=== PATIENT | female | born 1985 | race Caucasian/White ===

== ENCOUNTER → 2024-06-20 08:30 | Outpatient (REF) | payer BC, SELFPAY | LOC: WDC 08:30 | PROVIDERS: ATTENDING PHYSICIAN Emergency Medicine | DX: Z12.31 Encounter for screening mammogram for malignant neoplasm of breast (principal) | CPT/HCPCS: 77063; 77067 ==

== ENCOUNTER → 2024-07-28 13:58 | Outpatient (REF) | payer BC, SELFPAY | LOC: RAD 13:58 | PROVIDERS: ATTENDING PHYSICIAN Physician Assistant; FAMILY PHYSICIAN Emergency Medicine | DX: M25.641 Stiffness of right hand, not elsewhere classified (principal); M25.642 Stiffness of left hand, not elsewhere classified; M54.50 Low back pain, unspecified | CPT/HCPCS: 72100; 72200; 73130 ==

== ENCOUNTER → 2024-12-01 12:42 | Outpatient (REF) | payer BC, SELFPAY | LOC: WDC 12:42 | PROVIDERS: ATTENDING PHYSICIAN Emergency Medicine | DX: R92.343 Mammographic extreme density, bilateral breasts (principal) | CPT/HCPCS: 76641 ==

== ENCOUNTER → 2025-01-12 16:25 | Outpatient (REF) | payer BC, SELFPAY | LOC: MRI 3T 16:25 | PROVIDERS: ATTENDING PHYSICIAN Nurse Practitioner Adult Health; FAMILY PHYSICIAN Emergency Medicine | DX: R92.2 Inconclusive mammogram (principal); Z80.3 Family history of malignant neoplasm of breast | CPT/HCPCS: 77049; A9585 ==

== ENCOUNTER → 2025-01-21 14:52 | Outpatient (REF) | payer BC, SELFPAY | LOC: WDC 14:52 | PROVIDERS: ATTENDING PHYSICIAN Nurse Practitioner Adult Health; FAMILY PHYSICIAN Emergency Medicine | DX: R92.8 Other abnormal and inconclusive findings on diagnostic imaging of breast (principal) | CPT/HCPCS: 76642 ==

== ENCOUNTER → 2025-01-28 11:58 | Outpatient (REF) | payer BC, SELFPAY ==
--- NOTE | 2025-01-28 14:47 | OID.BR.INTR ---
[facility]igator - Initial
- -
Date of Contact: 01/28/25
Met with patient. Patient given written information on navigator services available at [facility]. Will follow up as needed per protocol.
== END ==
LOC: WDC 11:58
PROVIDERS: ATTENDING PHYSICIAN Nurse Practitioner Adult Health
DX: N63.11 Unspecified lump in the right breast, upper outer quadrant (principal)
CPT/HCPCS: 88305; 19083; A4648

== ENCOUNTER 2025-01-28 14:20 | Emergency (ER) | payer BC, SELFPAY ==
[2025-01-28 14:25] VITALS: BP 123/77; BMI 21.3
--- NOTE | 2025-01-28 14:33 | ED.GENMED ---
History of Present Illness
General
Chief Complaint: Fainting Sensation
Time Seen by Provider: 01/28/25 14:31
History of Present Illness
History of Present Illness:
TIME OF INITIAL EVALUATION
- 2:45 PM
REVIEW OF OLD RECORDS
- I reviewed the the notes from Dr. Agrawal from earlier today:
'The skin was cleansed ChloraPrep. It was anesthetized with 8 mL of 1% lidocaine at 1:30 PM. A small incision was made. Two passes were made with a coaxial core biopsy system. Two samples were obtained. These were sent to pathology for review. A
biopsy clip was placed in the area of concern. The lesion collapsed to less than 50% its initial size.
After walking a short distance from the ultrasound room to the mammography room, prior to the postprocedural mammogram, the patient became lightheaded and dizzy. She was placed in the supine position. . Her blood pressure at the time was 117/70 at
2:00 PM..She denied shortness of breath, difficulty swallowing or difficulty breathing. She was given a sip of water At 2:07 PM, her blood pressure was 133/88. She stated her arms felt heavy and she still felt dizzy. Rapid response was called. The
patient was sent to the emergency room.'
Note:
CHIEF COMPLAINT(S)
Dizziness and lightheadedness following a biopsy procedure.
HISTORY OF PRESENT ILLNESS
The patient is a 39-year-old female who experienced feelings of dizziness and lightheadedness following a biopsy procedure performed by Dr. Agrawal. She reports no loss of consciousness but did experience tingling sensations. The patient mentions
that there might be an anxiety component to her symptoms. She is currently experiencing dizziness.
The patient underwent a biopsy where a marker clip was placed to identify the biopsy site. This procedure was followed by a planned mammogram to verify the marker placement, but symptoms of dizziness arose before the mammogram could be conducted.
The patient reports no chest pain currently and denies any recent instances of dehydration, diarrhea, or lack of fluid intake. Theres no recent exposure to heat without adequate hydration.
There is a mention of the patients prior imaging, including an ultrasound and MRI, which identified an abnormality prompting the biopsy. The procedure results are currently unknown, but there is an indication that the healthcare team does not
suspect cancer.
On her electrocardiogram, the patient presented with an incomplete right bundle branch block, a finding described as common and not of significant clinical concern. Her vital signs, including oxygen saturation, heart rate, and blood pressure, are
reported to be normal.
PHYSICAL EXAM
- The patients vital signs include 100% oxygen saturation, excellent heart rate, and normal blood pressure.
- General: Well appearing in no distress
- HEENT: Moist oral mucosa
- Cardiovascular: No murmurs, normal heart rate, regular rhythm, No chest wall tenderness
- Pulmonary: No respiratory distress, breath sounds are clear and equal
- Abdomen: Soft with no peritoneal signs, no tenderness
- Neurologic: Excellent strength all extremities, no coordination deficits
- Psychiatric: Appropriate mental status, normal insight and judgement
- Extremities: Nontender, no edema, moves all extremities equally
- Skin: No rash, no lesions
PLAN
- Basic blood work to be performed for further evaluation.
- Administration of intravenous fluids to address potential dehydration.
- Continuous electrocardiogram monitoring to ensure cardiac stability and observe the right bundle branch block.
DIFFERENTIAL DIAGNOSIS
The Differential Diagnosis includes, in no particular order and is not limited to:
1. Vasovagal reaction
2. Anxiety-induced dizziness
3. Dehydration
4. Anemia
5. Electrolyte imbalance
6. Cardiac arrhythmia
7. Vestibular dysfunction
8. Orthostatic hypotension
9. Hypoglycemia
10. Neurological events (e.g., transient ischemic attack)
RADIOLOGY
- Not indicated
EKG
- Sinus 76, rightward axis deviation, incomplete right bundle branch block, no acute ST abnormality
LABS
- CBC and chemistries unremarkable
UPDATE
- I did communicate with Dr. Agrawal and she will call the patient with biopsy results and any potential need for mammogram in the future
SUMMARY OF ENCOUNTER
The patient, a 39-year-old female, presented to the emergency department with dizziness and lightheadedness following a biopsy procedure. After a thorough evaluation, including the administration of intravenous fluids, the patient reported feeling
better. Initial suspicions of dehydration were considered, although not definitively confirmed by blood tests. It was suggested she might benefit from increased fluid intake. Given her improved condition, hospitalization was not deemed necessary.
The patients ongoing management concerning biopsy results will be coordinated with Dr. Agrawal.
DISPOSITION
Discharge
PLAN
The plan includes monitoring the patients symptoms and encouraging her to maintain adequate hydration. Dr. Agrawal will be informed to coordinate follow-up regarding biopsy results.
PATIENT EDUCATION AND COUNSELING
The patient was advised to increase fluid intake and monitor her symptoms. She was assured that her condition did not require hospital admission at this time.
FOLLOW-UP INSTRUCTIONS
Patient to follow up with Dr. Agrawal regarding the biopsy results.
MEDICAL DECISION MAKING
- Number and Complexity of Problems Addressed: Anxiety-induced dizziness, possible mild dehydration, possible vasovagal reaction
- Data:
- Category 1: Blood work was reviewed and resulted normal.
- Risk:
- Consideration of Admission/Observation: Escalation of care including admission/observation was considered given the complexity and risk of the patients presenting complaint, exam findings, and/or their underlying comorbidities. However, ultimately
I feel the patient is safe for outpatient management with close follow-up. Reasoning: Work-up reassuring, does not reveal any acute life/organ-threatening processes, patients symptoms well controlled upon reevaluation, reexamination is reassuring,
vitals are stable, patient agreeable with discharge, reliable for follow-up.
DIAGNOSIS
1. Dizziness (ICD-10 R42)
2. Dehydration, mild (possible, not confirmed) (ICD-10 E86.0)
Past History
Past History
ED Past Medical History: None
ED Past Surgical History: Other (Surg L elbow)
Social History
Tobacco: Non-smoker
Alcohol: Occasional
Personal:
Living: with family
Phy Exam
Physical Exam
Physical Exam:
See HPI
Course
Orders/Labs/Results
Orders:
Orders
01/28/25 14:35
EKG [Electrocardiogram (*1)] Urgent
Reason for Study: Syncope
EKG- Treatment ONCE
01/28/25 14:51
0.9% Sodium Chloride 1000 ml [Nss] 1,000 ml IV BOLUS
01/28/25 14:55
Complete Blood Count/With Diff Urgent
Comprehensive Metabolic Panel Urgent
Abnormal Lab Results
01/28/25
14:55
RBC 4.04 L 10^6/uL
(4.20-5.40)
Hct 36.8 L %
(37.0-47.0)
MPV 10.5 H fL
(7.4-10.4)
Chloride 108 H mmol/L
(98-107)
BUN 19 H mg/dl
(7-17)
01/28/25 14:55
01/28/25 14:55
Vital Signs
Initial and Last Documented VS:
Initial Vital Signs
Temp Pulse Resp BP Pulse Ox
36.4 C 74 18 123/77 100
01/28/25 14:25 01/28/25 14:25 01/28/25 14:25 01/28/25 14:25 01/28/25 14:25
Last Documented Vital Signs
Temp Pulse Resp BP Pulse Ox
36.6 C 69 16 103/61 100
01/28/25 17:12 01/28/25 17:12 01/28/25 17:12 01/28/25 17:10 01/28/25 17:12
*Pulse Oximetry
SaO2: 100
Oxygen Mode of Delivery: Room air
Patient hypoxic: no
*Critical Care Note
Total Time (30-74mins, 75-104mins- exclusive of procedures): Not Applicable
ED Attending Note
-
Portions of this chart may have been created with voice recognition software.� Occasional wrong word or��sound alike� substitutions may have occurred due to the inherent limitations of voice recognition software.
Discharge Plan
Departure
Prescriptions:
No Action
prenat.vits,kimberley,[id number] [ Vitamin] 1 TAB tablet
1 tab PO DAILY
docosahexaenoic acid 100 MG capsule
100 mg PO DAILY
Calcium
200 tab PO DAILY
ibuprofen 600 MG tablet
600 mg PO Q4HPRN PRN (Reason: moderate pain/cramps) Qty: 30 0RF
ondansetron 4 mg tablet,disintegrating
4 mg PO Q8H PRN (Reason: nausea and vomiting) Qty: 20 0RF
Referrals:
Lolita Landa MD [Family Provider, Internal Medicine]
Interventions
Interventions:
*Risk Screen - Suicide Last Done: 01/28/25 14:25
*General Assessment Last Done: 01/28/25 14:25
*Neglect/Abuse Screening Last Done: 01/28/25 14:33
*ED- Fall Risk Assessment Last Done: 01/28/25 14:33
*ED COVID-19 Vaccine History Last Done: 01/28/25 14:25
ED- Cardiac Assessment Last Done: 01/28/25 14:33
ED- Neurological Assessment Last Done: 01/28/25 14:33
Discharge Date and Time
Print Language: ANGOLAN
[2025-01-28] MEDS: NSS 1000 IV (14:54)
[2025-01-28 14:56] VITALS: BP 110/63
[2025-01-28 15:00] VITALS: BP 99/67
[2025-01-28 15:16] LABS: Hematocrit 36.8 % (37.0-47.0); Hemoglobin 12.5 g/dL (12.0-16.0); Mean Corp Hgb Conc. 34.0 g/dL (33.0-37.0); Mean Corpuscular Volume 91.1 fL (81.0-99.0); Nucleated Red Blood Cells % 0 %; Platelet Count 250 10^3/uL (130-400); Red Cell Dist. Width 12.0 % (11.5-14.5)
[2025-01-28 15:29] LABS: ALT (SGPT) 19 U/L (0-35); AST (SGOT) 22 U/L (14-36); Albumin 4.7 g/dl (3.5-5.0); Alkaline Phosphatase 40 U/L (38-126); Blood Urea Nitrogen 19 mg/dl (7-17); Calcium 9.4 mg/dl (8.4-10.2); Carbon Dioxide 24 mmol/L (22-30); Chloride 108 mmol/L (98-107); Estimated Creatinine Clearance 90 ml/min; Glucose 95 mg/dl (70-99); Potassium 4.1 mmol/L (3.5-5.1); Sodium 138 mmol/L (135-145); Total Protein 7.8 g/dl (6.3-8.2); eGFR > 60.00
[2025-01-28 15:30] VITALS: BP 115/73
[2025-01-28 16:00] VITALS: BP 111/64
[2025-01-28 17:10] VITALS: BP 103/61
== END 2025-01-28 17:27 | disposition home or self-care (01) ==
LOC: EMR 14:20
PROVIDERS: EMERGENCY PHYSICIAN Emergency Medicine; FAMILY PHYSICIAN Emergency Medicine
DX: R42 Dizziness and giddiness (principal); I45.10 Unspecified right bundle-branch block; E86.0 Dehydration; Z12.31 Encounter for screening mammogram for malignant neoplasm of breast
CPT/HCPCS: 99283; 80053; 85025; 93005

== ENCOUNTER → 2025-07-03 08:44 | Outpatient (REF) | payer BC, SELFPAY | LOC: WDC 08:44 | PROVIDERS: ATTENDING PHYSICIAN Obstetrics & Gynecology; FAMILY PHYSICIAN Emergency Medicine | DX: Z12.31 Encounter for screening mammogram for malignant neoplasm of breast (principal) | CPT/HCPCS: 77063; 77067 ==

== ENCOUNTER → 2025-07-08 20:30 | Outpatient (REF) | payer BC, SELFPAY | LOC: MRI 3T 20:30 | PROVIDERS: ATTENDING PHYSICIAN Nurse Practitioner Adult Health; FAMILY PHYSICIAN Emergency Medicine | DX: R92.8 Other abnormal and inconclusive findings on diagnostic imaging of breast (principal) | CPT/HCPCS: 77049; A9585 ==

== ENCOUNTER → 2025-07-19 13:44 | Outpatient (REF) | payer BC, SELFPAY | LOC: WDC 13:44 | PROVIDERS: ATTENDING PHYSICIAN Nurse Practitioner Adult Health; FAMILY PHYSICIAN Emergency Medicine | DX: R92.8 Other abnormal and inconclusive findings on diagnostic imaging of breast (principal) | CPT/HCPCS: 76642 ==

== ENCOUNTER → 2025-07-24 07:35 | Outpatient (REF) | payer BC, SELFPAY | LOC: MRI 3T 07:35 | PROVIDERS: ATTENDING PHYSICIAN Student in an Organized Health Care Education/Training Program; FAMILY PHYSICIAN Emergency Medicine | DX: G89.29 Other chronic pain (principal); M13.80 Other specified arthritis, unspecified site; M25.641 Stiffness of right hand, not elsewhere classified; M25.642 Stiffness of left hand, not elsewhere classified | CPT/HCPCS: 73220; A9575 ==